=== PATIENT | female | born 1950 | race Caucasian/White ===

== ENCOUNTER 2016-10-28 10:06 | Outpatient (CLI) | payer OTHER ==
[2014-01-15 13:46] VITALS: BP 137/42
[2016-10-28 10:50] LABS: eGFR (African) > 60; eGFR (Non-African) > 60
--- NOTE | 2016-10-28 16:09 | Diagnostic Imaging Report ---
[facility] [address] [facility].[address] [id number] Report Submission Date: Oct 28, 2016 3:28:01 PM INSTRUCTIONAL DESIGN TECHNOLOGIST Patient Study Name: CELESTINA KWONG Date: Oct 28, 2016 10:23:00 AM INSTRUCTIONAL DESIGN TECHNOLOGIST Modality Type: CR Gender: F Description: LOWER EXTREMITY : 46 Institution: [facility] Physician: JOHN ROSAS - OP 3 views of the right knee History: RT KNEE, PAIN FOR 20+ YEARS WITH PRIOR SURGERIES, RECENT WORSENING PAIN AFTER MULTIPLE FALLS IN THE LAST TWO MONTHS (Hx) / ACUTE RIGHT KNEE PAIN Findings: No comparison studies There is narrowing of the medial knee joint space Tricompartmental osteophytes are seen No evidence of acute fracture or dislocation of the right knee, there is small suprapatellar effusion, patellar enthesophytes are present Impression: No evidence of acute fracture or dislocation of the right knee Small suprapatellar effusion Tricompartmental degenerative changes Electronically signed on Oct 28, 2016 3:28:01 PM INSTRUCTIONAL DESIGN TECHNOLOGIST by: Sarah MCCARTNEY
== END 2016-10-28 10:07 ==
LOC: LAB 10:06
PROVIDERS: ATTEND Family Medicine
DX: M25.561 Pain in right knee (principal); E78.5 Hyperlipidemia, unspecified
CPT/HCPCS: 36415; 73562; 80053; 80061

== ENCOUNTER 2017-01-28 08:06 | Outpatient (CLI) | payer OTHER ==
[2014-01-15 13:46] VITALS: BP 137/42
[2017-01-28 09:06] LABS: eGFR (African) > 60; eGFR (Non-African) > 60
== END 2017-01-28 08:07 ==
LOC: LAB 08:06
PROVIDERS: ATTEND Family Medicine
DX: E78.2 Mixed hyperlipidemia (principal)
CPT/HCPCS: 36415; 80053; 80061

== ENCOUNTER 2018-01-24 09:28 | Outpatient (CLI) | payer OTHER ==
[2014-01-15 13:46] VITALS: BP 137/42
[2018-01-24 10:27] LABS: eGFR (African) > 60; eGFR (Non-African) > 60
== END 2018-01-24 09:30 ==
LOC: LAB 09:28
PROVIDERS: ATTEND Family Medicine
DX: E78.2 Mixed hyperlipidemia (principal)
CPT/HCPCS: 36415; 80053; 80061